=== PATIENT | male | born 1955 | race Caucasian/White ===

== ENCOUNTER → 2020-06-03 | Outpatient (CLI) | payer BC | END | disposition home or self-care (01) | LOC: RAH 13:57 | PROVIDERS: ATTEND Internal Medicine | DX: S82.452A Displaced comminuted fracture of shaft of left fibula, initial encounter for closed fracture (principal); M25.562 Pain in left knee; X58.XXXA Exposure to other specified factors, initial encounter; Y93.89 Activity, other specified; Y92.89 Other specified places as the place of occurrence of the external cause; Y99.8 Other external cause status | CPT/HCPCS: 73560 ==

== ENCOUNTER → 2020-11-11 | Outpatient (CLI) | payer BC | END | disposition home or self-care (01) | LOC: RAH 16:33 | PROVIDERS: ATTEND Internal Medicine | DX: R07.81 Pleurodynia (principal); W19.XXXA Unspecified fall, initial encounter; Y93.89 Activity, other specified; Y92.89 Other specified places as the place of occurrence of the external cause; Y99.8 Other external cause status | CPT/HCPCS: 71101 ==

== ENCOUNTER → 2021-12-26 | Outpatient (CLI) | payer BC | END | disposition home or self-care (01) | LOC: SHCH 13:27 | PROVIDERS: ATTEND Internal Medicine Cardiovascular Disease | DX: R55 Syncope and collapse (principal) | CPT/HCPCS: 93306 ==

== ENCOUNTER → 2023-07-06 | Outpatient (CLI) | payer BC | END | disposition home or self-care (01) | LOC: RAH 13:59 | PROVIDERS: ATTEND Internal Medicine | DX: S50.12XA Contusion of left forearm, initial encounter (principal); X58.XXXA Exposure to other specified factors, initial encounter; Y93.89 Activity, other specified; Y92.89 Other specified places as the place of occurrence of the external cause; Y99.8 Other external cause status | CPT/HCPCS: 73090 ==

== ENCOUNTER 2024-05-20 19:21 | Emergency (ER) | payer BC, MEDICARE ==
[~2024-05-20] VITALS: Ht 167.6 cm; Wt 65.8 kg
--- NOTE | 2024-05-20 20:08 | ERN ---
General Chief Complaint: Mechanical Fall Stated Complaint: MECHANICAL FALL Time Seen by MD: 19:25 Source: patient, family History of Present Illness Initial Comments 69-YEAR-OLD MALE WITH A HISTORY OF PARKINSON'S DISEASE COMING IN TO BE EVALUATED AFTER SHE HAD HE HAS A MECHANICAL FALL EARLIER TODAY. PER FAMILY MEMBERS PATIENT DOES HAVE A SHUFFLING GAIT WHICH CAUSES HIM FALL FREQUENTLY. DISLOCATION PATIENT WAS AT A [employer] WALKING OUT OF THE [employer] AND DUE TO THE SHAFT IN GAIT RIGHT FOOT CUP. ON THE CURB FELL DOWN HITTING HIMSELF IN THE RIGHT SHOULDER AND RIGHT HIP REGION. PATIENT STATES HE WAS ABLE TO MOVE HIS RIGHT SHOULDER MILD TENDERNESS NO DEFORMITY. HIS RIGHT HIP IS TENDER TO PALPATION HE WAS ABLE TO AMBULATE BUT HAS BEEN SOME DISCOMFORT. Allergies: Coded Allergies: No Known Allergies (Unverified Allergy, Unknown, 05/20/24) Past Medical History Past Medical History: Other Medical History Other: PARKINSONS Past Surgical History: None ROS Dictation CONSTITUTIONAL: NO CHILLS, NO FEVER, NO WEAKNESS, NO DIAPHORESIS, NO MALAISE. HEAD/FACE: NO SIGNS OF TRAUMA. EENT: NO EYE PAIN, NO BLURRED VISION, NO TEARING, NO DOUBLE VISION, NO EAR PAIN, NO EAR DISCHARGE, NO NOSE PAIN, NO NASAL CONGESTION, NO THROAT PAIN, NO THROAT SWELLING, NO MOUTH PAIN. RESPIRATORY: NO COUGH, NO ORTHOPNEA, NO SOB, NO STRIDOR, NO WHEEZING. CARDIOVASCULAR: NO CHEST PAIN, NO EDEMA, NO PALPITATIONS, NO SYNCOPE. GASTROINTESTINAL/ABDOMINAL: NO ABDOMINAL PAIN, NO CONSTIPATION, NO DIARRHEA, NO NAUSEA, NO VOMITING. GENITOURINARY: NO ABNORMAL DISCHARGE, NO DYSURIA, NO FREQUENT URINATION, NO HEMATURIA. NO COMPLAINTS OF PAIN IN THE GENITALS. MUSCULOSKELETAL: NO BACK PAIN, NO GOUT, JOINT PAIN, JOINT SWELLING, MUSCLE PAIN, NO MUSCLE STIFFNESS, NO NECK PAIN. INTEGUMENTARY: NO CHANGE IN COLOR, NO CHANGE IN HAIR/NAILS, NO DRYNESS, NO LESION, NO LUMPS, NO RASH. NEUROLOGICAL/PSYCH: NO ANXIETY, NOT DEPRESSED, NO EMOTIONAL PROBLEM, NO HEADACHE, NO NUMBNESS, NO PRE-EXISTING DEFICIT, NO HISTORY OF SEIZURES, NO TREMORS, NO WEAKNESS. HEMATOLOGIC/LYMPHATIC: NOT ANEMIC, NO HISTORY OF BLOOD CLOTS, NO APPARENT BLEEDING, NO BRUISING, GLANDS NOT SWOLLEN. ALL SYSTEMS NEGATIVE, EXCEPT NOTED. Physical Exam Physical Exam Dictation VITAL SIGNS: REVIEWED. GENERAL APPEARANCE: ALERT, ORIENTED X3, NO ACUTE DISTRESS, OBESE. HEAD AND FACE: NON-TRAUMATIC. EYES: PERRL, PINK CONJUNCTIVAS, EYELID NO TRAUMA, ANTERIOR CHAMBER CLEAR. EARS: PINNAS INTACT AND NO SIGNS OF TRAUMA OR ERYTHEMA. EAR CANALS CLEAR AND NO DISCHARGE. TMS NO ERYTHEMA. NOSE: NO DISCHARGE, NO BLEEDING. OROPHARYNX: MOUTH NORMAL, TEETH NO CARIES, TONGUE PINK. PHARYNX CLEAR, NO ERYTHEMA. TONSILS NO EXUDATES, NO ABSCESSES NOTED. MUCOUS MEMBRANE MOIST. NECK: SUPPLE, NON-TENDER, NO THYROMEGALY, NO MASSES, NO JVD, NO BRUITS. BREAST: DEFERRED. CHEST: NO TENDERNESS, NO CREPITUS, NO PARADOXICAL MOVEMENT, NO RETRACTIONS. LUNGS: CLEAR, WELL-VENTILATED, SYMMETRIC, NO RALES, NO WHEEZING, NO RHONCHI, NO STRIDOR, GOOD BREATH SOUNDS BILATERALLY. HEART: REGULAR RATE, REGULAR RHYTHM, NO MURMUR, NO GALLOPS. VASCULAR: NO PERIPHERAL EDEMA. ABDOMEN: SOFT, POSITIVE BOWEL SOUNDS, NONDISTENDED, NO GUARDING, NONTENDER, NO REBOUND, NO MASSES NO HEPATOMEGALY, NO SPLENOMEGALY, NO MCKEON'S SIGN, NO HERNIAS. RECTAL: DEFERRED. GENITAL: DEFERRED. NEUROLOGICAL: NORMAL SPEECH, GROSS MOTOR FUNCTION INTACT, GROSS SENSORY FUNCTION INTACT. MUSCULOSKELETAL: NECK NONTENDER, FULL RANGE OF MOTION, BACK NONTENDER, FULL RANGE OF MOTION. EXTREMITIES: NONTENDER, FULL RANGE OF MOTION. RIGHT SHOULDER TENDERNESS TO PALPATION, NO LIMITATION ABDUCTION AND ADDUCTION OF RIGHT SHOULDER, TENDERNESS TO PALPATION OF THE RIGHT HIP NO LIMITATION ON MOVEMENT. SKIN: COLOR PINK, DRY, NO TURGOR, NO RASH, NO LACERATIONS, NO ABRASIONS, NO CONTUSIONS. LYMPHATICS: DEFERRED. Results Laboratory and Microbiology Labs Reviewed?: Yes EKG/XRAY/US/CT/MRI X-RAY Comment [place] [id number] [id number] IMAGING REPORT Signed PATIENT: FELIPE SO MR#: [id number] : 1955 SEX: M AGE: 69 LOCATION: ED ORDER 40 STATUS: REG REPORT#: [id number] SERVICE 39 REASON: fall ORDERING PHYSICIAN: MICHELLE KNOWLES MD PROCEDURE: RIB RT W C - RIBS UNI RT W PA CHEST 3+ VWS RIBS UNI RT W PA CHEST 3+ VWS HISTORY: fall TECHNIQUE: RIBS UNI RT W PA CHEST 3+ VWS FINDINGS/IMPRESSION: No evidence of displaced rib fracture. Clinical correlation is recommended. No acute pulmonary consolidation pleural effusion. Cardiac silhouette is within normal limits. DICTATED BY: JAYA GARY MD DATE: 05/20/242044 ELECTRONICALLY SIGNED BY: JAYA GARY MD DATE: 05/20/242047 [place] [id number] IMAGING REPORT Signed PATIENT: FELIPE SO MR#: [id number] : 1955 SEX: M AGE: 69 LOCATION: EDH ORDER 40 STATUS: REG ER [facility] REPORT#: [id number] SERVICE 39 REASON: fall ORDERING PHYSICIAN: MICHELLE KNOWLES MD PROCEDURE: HIP U 2V R - HIP UNILAT 2-3VW RIGHT HIP UNILAT 2-3VW RIGHT INDICATION: fall TECHNIQUE: HIP UNILAT 2-3VW RIGHT. FINDINGS/IMPRESSION: No displaced fracture or dislocation is seen. Correlate clinically. There is no joint effusion or soft tissue swelling. No radiopaque foreign body is identified. DICTATED BY: JAYA GARY MD DATE: 05/20/242043 ELECTRONICALLY SIGNED BY: JAYA GARY MD DATE: 05/20/242046 [facility] MDM: DIFFERENTIAL DIAGNOSIS: FALL, TRIP, MECHANICAL FALL, HIP CONTUSION, SHOULDER STRAIN PATIENT IS A 69-YEAR-OLD MALE COMING IN TO BE EVALUATED AFTER HE HAD A FALL. PATIENT HAS A HISTORY OF PARKINSON'S AND HAS A SHUFFLING GAIT WHICH CAUSED HIM TO FALL. HE HAS HAD SEVERAL FALSE IN THE PAST SECONDARY TO PARKINSON'S. ON DISLOCATION X-RAYS OF THE HIP AND RIBS ARE NEGATIVE FOR ACUTE FINDINGS. PATIENT WILL BE DISCHARGED IN STABLE CONDITION WITH A DIAGNOSIS OF MECHANICAL FALL. ED Course Orders Procedure Category Date Status Time Ribs Uni Rt W Pa RAD 05/20/24 Resulted Chest 3+ Vws 19:40 Hip Unilat 2-3vw Right RAD 05/20/24 Resulted 19:40 Acetaminophen 500mg PHA 05/20/24 Complete Tab (Tylenol 500mg T 20:00 Ibuprofen 600 Mg PHA 05/20/24 Transmitted Tablet (Motrin) 21:00 Current Medications Medications (Trade) Dose Ordered Sig/Olivia Route PRN Reason Start Time Stop Time Status Last Admin Dose Admin Acetaminophen (TYLenol 500MG TAB) 500 mg ONCE ONCE PO 05/20/24 20:00 05/20/24 20:01 DC Vital Signs Date Time Temp Pulse Resp B/P (MAP) Pulse Ox O2 Delivery O2 Flow Rate FiO2 05/20/24 19:27 97.5 61 14 119/69 97 Room Air DX & DISP Disposition: Discharge Departure Impression: Primary Impression: Accident due to mechanical fall without injury Additional Impression: History of Parkinson's disease Condition: Stable Additional Instructions: FOLLOW-UP WITH PRIMARY CARE PROVIDER IN 1 TO 2 DAYS. TAKE MEDICATIONS DIRECTED HERE IN THE EMERGENCY ROOM. OKAY TO CONTINUE HOME MEDICATIONS UNLESS OTHERWISE DISCUSSED DURING YOUR VISIT IN THE EMERGENCY ROOM TODAY. RETURN TO YOUR NEAREST EMERGENCY ROOM IF SYMPTOMS WORSEN OR IF THERE IS NO IMPROVEMENT. CALL 911 IF YOU NEED IMMEDIATE ASSISTANCE. TAKE TYLENOL [id number] NEEDED AND IF NO CONTRAINDICATIONS ARE PRESENT. INCREASE ORAL HYDRATION. A WOUND CULTURE OR URINE CULTURE WAS ORDERED HERE IN THE EMERGENCY ROOM DEPARTMENT PLEASE FOLLOW-UP WITH PRIMARY CARE PROVIDER AND ADVISE THEM TO GET REPEAT PORTS FROM OUR FACILITY. IF YOU HAD ANY PRIYANK WRAP/SPLINTS THAT WERE APPLIED HERE, PL EASE DO NOT REMOVE THEM UNTIL YOU SEE YOUR PRIMARY CARE OR SPECIALTY. REFERRALS: Referrals: DENNISE ALVARADO MD (PCP) Time of Disposition: 20:57 MICHELLE KNOWLES MD May 20, 2024 20:07
--- NOTE | 2024-05-20 20:47 | HMCIMG ---
HIP UNILAT 2-3VW RIGHT INDICATION: fall TECHNIQUE: HIP UNILAT 2-3VW RIGHT. FINDINGS/IMPRESSION: No displaced fracture or dislocation is seen. Correlate clinically. There is no joint effusion or soft tissue swelling. No radiopaque foreign body is identified.
--- NOTE | 2024-05-20 20:48 | HMCIMG ---
RIBS UNI RT W PA CHEST 3+ VWS HISTORY: fall TECHNIQUE: RIBS UNI RT W PA CHEST 3+ VWS FINDINGS/IMPRESSION: No evidence of displaced rib fracture. Clinical correlation is recommended. No acute pulmonary consolidation pleural effusion. Cardiac silhouette is within normal limits.
[2024-05-20] MEDS: acetaMINOPHEN 500 MG TABLET PO ONE (20:52)
--- NOTE | 2024-05-20 20:53 | NUR ---
PT REFUSING TYLENOL/ STATES IT MAKES MIGRAINS WORSE
[2024-05-20] MEDS: ibuPROFEN 600 MG TABLET PO ONE (20:57)
[2024-05-20 21:08] VITALS: BP 117/65; PULSE 74; RESP 16; TEMP 98; O2SAT 98
== END 2024-05-20 21:10 | disposition home or self-care (01) ==
LOC: EDH 19:21
DX: M25.511 Pain in right shoulder (principal); M25.551 Pain in right hip; R00.2 Palpitations; G20.A1 Parkinson's disease without dyskinesia, without mention of fluctuations
CPT/HCPCS: 71101; 73502; 99283

== ENCOUNTER 2024-12-16 15:49 | Emergency (ER) | payer MEDICARE, BC ==
[~2024-12-16] VITALS: Ht 172.7 cm; Wt 67.1 kg
[2024-12-16 16:22] LABS: IMMATURE GRANULOCYTE ABSOLUTE 0.03 K/uL (0-1); NUCLEATED RED BLOOD CELLS 0.0 % (0.0-0.19); PLATELET COUNT (AUTO) 196 K/uL (130-400); RED BLOOD CELL COUNT(AUTO) 4.35 MIL/uL (4.50-6.20); RED CELL DISTRIBUTION WIDTH 12.6 % (11.0-15.5); WHITE BLOOD COUNT (AUTO) 6.5 K/uL (4.8-10.8)
[2024-12-16] MEDS: 0.9%NACL 1000ML 1,000 ML IV ONE (16:30)
--- NOTE | 2024-12-16 16:33 | NUR ---
PT REFUESED TYLONOL AFTER SCANNED ADVISED TYLONOL PROMOTES MIGRANE HEADACHES
[2024-12-16 16:38] LABS: CREATININE 1.5 mg/dL (0.5-1.3); GLOMERULAR FILTR. RATE CALC 49.0 mL/min (>90); GLUCOSE,RANDOM 71.0 mg/dL (70-105); SODIUM SERUM 141.0 mmol/L (136-145); UREA NITROGEN, BLOOD 24.0 mg/dL (7-18)
[2024-12-16 16:43] LABS: CREATINE KINASE, TOTAL 71.0 U/L (21-232)
--- NOTE | 2024-12-16 17:02 | HMCIMG ---
EXAM: CT Cervical Spine Without IV contrast. CLINICAL HISTORY: fall, trauma TECHNIQUE: Axial computed tomography images of the cervical spine without intravenous contrast. Sagittal and coronal reformatted images were generated. COMPARISON: None provided. FINDINGS: ALIGNMENT: Straightening of the cervical spine. No dislocation. DEGENERATIVE CHANGES: Mild to moderate degenerative changes which are more pronounced in the lower cervical spine. SOFT TISSUES: The prevertebral soft tissues are within normal limits. BONES: No fracture in the cervical spine. IMPRESSION: 1. No fracture or dislocation in the cervical spine. 2. Straightening of the cervical spine. This may be positional or may be due to paraspinal muscle spasm. 3. Mild to moderate degenerative changes which are more pronounced in the lower cervical spine. /[place]
--- NOTE | 2024-12-16 17:03 | HMCIMG ---
EXAM: CR Chest, 1 View. CLINICAL HISTORY: weakness COMPARISON: None provided. FINDINGS: LUNGS: The lungs show no infiltrate or other acute finding. PLEURAL SPACES: No pleural effusion or pneumothorax. MEDIASTINUM: Cardiac size and mediastinal contours within normal limits. BONES: No aggressive appearing osseous lesion seen. IMPRESSION: No acute cardiopulmonary pathology is evident. /[place]
--- NOTE | 2024-12-16 17:05 | HMCIMG ---
EXAM: CT Head Without IV contrast. CLINICAL HISTORY: fall, trauma TECHNIQUE: Axial computed tomography images of the head/brain without intravenous contrast. COMPARISON: None provided. FINDINGS: BRAIN: No evidence of acute hemorrhage. No mass lesion. No CT evidence for acute territorial infarct. No midline shift or extra-axial collections. VENTRICLES: No hydrocephalus. ORBITS: The orbits are unremarkable. SINUSES AND MASTOIDS: The paranasal sinuses and mastoid air cells are clear. BONES: No fracture. SOFT TISSUES: Unremarkable. IMPRESSION: No acute intracranial abnormality. /[place]
--- NOTE | 2024-12-16 17:56 | NUR ---
ORTHO VITALS AR FOLLOW SUPINE -HR 44 BP-171/79 SITTING -HR-50 BP-158/76 STANGING -HR-51 BP-156/80
--- NOTE | 2024-12-16 17:58 | NUR ---
C COLLAR REMOVED BY TRAFFIC ENGINEER
[2024-12-16 18:50] VITALS: BP 157/67; PULSE 52; RESP 16; TEMP 98.1; O2SAT 99
--- NOTE | 2024-12-16 19:03 | ERN ---
ED Note History of Present Illness Stated Complaint: FALL Chief Complaint: Mechanical Fall Time Seen by MD: 15:53 Time Seen by Midlevel: 15:53 Dictation: The patient is a 69-year-old male with a history of Parkinson's, dementia, migraine headaches who presents to the emergency department with complaints of a ground level fall onto today around 2:00 p.m.. Fall was witnessed by family members. Reports patient was trying to open the refrigerator with the door when he fell backwards hitting the back of his head. Family unable to determine if he lost any consciousness. They deny any nausea or vomiting, denies any use of blood thinners. Denies any recent illness. Denies any fevers, nausea vomiting or diarrhea. Patient reports he has occasional dizziness but denies any current dizziness. Per family patient has been having frequent falls over the last two years. Patient is following up with Cardiology for evaluation of propranolol use due to migraines. Patient denies any lower extremity pain, denies any hip pain, denies any abdominal pain or back pain. Reports neck pain Allergies: Coded Allergies: No Known Allergies (Unverified Allergy, Unknown, 05/20/24) Past Medical History Past Medical History: High Cholesterol, Hypotension, Migraines, Other Additional Past Medical Hx: PARKINSONS Surgical History: None Review of System Dictation Constitutional: Negative for fever,chills, and weight loss Eyes: Negative for injury, pain,redness, and discharge ENT: Negative for injury,pain or swelling positive for neck pain Cardiovascular: Negative for chest pain, palpitations, and edema Respiratory: Negative for shortness of breath, cough, and wheezing, Abdomen/GI: Negative for abdominal pain, nausea, vomiting, diarrhea, and constipation Back: Negative for injury and pain : Negative for injury, bleeding and discharge MS/Extremity: Negative for injury and deformity Skin: Negative for rash, and discoloration Neuro: Negative for weakness, numbness, tingling, and seizure positive for headaches Psych: Negative for suicide ideation, homicidal ideation, and hallucinations Initial Vital Sign VS Vital Signs Date Time Temp Pulse Resp B/P (MAP) Pulse Ox O2 Delivery O2 Flow Rate FiO2 12/16/24 15:53 97.9 50 18 100/66 96 Room Air 12/16/24 16:17 0 21 Physical Exam Dictation Vital Signs reviewed General Appearance: Alert, oriented x 1 (baseline), no acute distress, well developed, nourished. Head and Face: non-traumatic. Eyes: PERRL, pink conjunctivas, eyelid no trauma, anterior chamber with arcus senilis. Ears: Pinnas intact and no signs of trauma or erythema ear canals clear and no discharge TM no erythema Nose: No discharge, no bleeding. Oropharynx: Mouth normal, tongue pink. pharynx clear,no erythema, tonsils no exudates, no abscesses noted, mucous membrane moist Neck: Supple, non-tender, no thyromegaly, no masses, no JVD, no bruits Breast:Deferred Chest:No tenderness, no crepitus, no paradoxical movement, no retractions Lungs:Clear, well-ventilated, symmetric, no rales, no wheezing, no rhonchi, no stridor, good breath sounds bilaterally Heart: Regular rate, regular rhythm, no murmur, no gallops Vascular: no peripheral edema, Abdomen: Soft, positive bowel sounds, nondistended, no guarding, nontender, no rebound, no masses no hepatomegaly, no splenomegaly, no Sainz's sign, no hernias. Rectal: Deferred Genital: Deferred Neurological: Normal speech, motor function intact, sensory function intact , upper extremities equal in strength, extremities equal in strength, no facial droop Musculoskeletal: Neck nontender, full range of motion, back nontender, full range of motion, Extremities: nontender, full range of motion Skin: Color pink, dry, no turgor, no rash, no lacerations, no abrasions, no contusions. Lymphatic: Deferred Results (Laboratory/Radiology) Laboratory/Radiology Laboratory Tests Test 12/16/24 16:15 White Blood Count 6.5 K/uL (4.8-10.8) Red Blood Count 4.35 MIL/uL (4.50-6.20) L Hemoglobin 13.2 g/dL (14.0-18.0) L Hematocrit 38.6 % (42-54) L Mean Corpuscular Volume 88.7 fL (79-99) Mean Corpuscular Hemoglobin 30.3 pg (27.0-33.0) Mean Corpuscular Hemoglobin Concent 34.2 g/dL (32.0-36.0) Red Cell Distribution Width 12.6 % (11.0-15.5) Platelet Count 196 K/uL (130-400) Mean Platelet Volume 9.1 fL (7.5-10.5) Immature Granulocyte % (Auto) 0.5 % (0-1) Neutrophils (%) (Auto) 60.8 % (40.0-77.0) Lymphocytes (%) (Auto) 22.7 % (21.0-51.0) Monocytes (%) (Auto) 14.1 % (3.0-13.0) H Eosinophils (%) (Auto) 1.4 % (0.0-8.0) Basophils (%) (Auto) 0.5 % (0.0-5.0) Neutrophils # (Auto) 4.0 K/uL (1.8-7.7) Lymphocytes # (Auto) 1.5 K/uL (1.0-4.8) Monocytes # (Auto) 0.9 K/uL (0.1-1.0) Eosinophils # (Auto) 0.09 K/uL (0.00-0.70) Basophils # (Auto) 0.03 K/uL (0.00-0.20) Absolute Immature Granulocyte (auto 0.03 K/uL (0-1) Nucleated Red Blood Cells 0.0 % (0.0-0.19) Sodium Level 141 mmol/L (136-145) Potassium Level 3.3 mmol/L (3.5-5.1) L Chloride Level 103 mmol/L (101-111) Carbon Dioxide Level 33 mmol/L (21-32) H Blood Urea Nitrogen 24 mg/dL (7-18) H Creatinine 1.5 mg/dL (0.5-1.3) H Glomerular Filtration Rate Calc 49 mL/min (>90) Random Glucose 71 mg/dL (70-105) Total Calcium 8.5 mg/dL (8.5-10.1) Magnesium Level 2.50 mg/dL (1.80-2.40) H Total Creatine Kinase 71 U/L (21-232) Troponin I High Sensitivity 5 ng/L (4-75) REASON: fall, trauma ORDERING PHYSICIAN: MARRY CASTLE PROCEDURE: C SPIN WO - CT CERVICAL SPINE W/O CONTRAST EXAM: CT Cervical Spine Without IV contrast. CLINICAL HISTORY: fall, trauma TECHNIQUE: Axial computed tomography images of the cervical spine without intravenous contrast. Sagittal and coronal reformatted images were generated. COMPARISON: None provided. FINDINGS: ALIGNMENT: Straightening of the cervical spine. No dislocation. DEGENERATIVE CHANGES: Mild to moderate degenerative changes which are more pronounced in the lower cervical spine. SOFT TISSUES: The prevertebral soft tissues are within normal limits. BONES: No fracture in the cervical spine. IMPRESSION: 1. No fracture or dislocation in the cervical spine. 2. Straightening of the cervical spine. This may be positional or may be due to paraspinal muscle spasm. 3. Mild to moderate degenerative changes which are more pronounced in the lower cervical spine. /[place] REASON: fall, trauma ORDERING PHYSICIAN: MARRY CASTLE PROCEDURE: HEAD WO - CT HEAD/BRAIN W/O CONTRAST EXAM: CT Head Without IV contrast. CLINICAL HISTORY: fall, trauma TECHNIQUE: Axial computed tomography images of the head/brain without intravenous contrast. COMPARISON: None provided. FINDINGS: BRAIN: No evidence of acute hemorrhage. No mass lesion. No CT evidence for acute territorial infarct. No midline shift or extra-axial collections. VENTRICLES: No hydrocephalus. ORBITS: The orbits are unremarkable. SINUSES AND MASTOIDS: The paranasal sinuses and mastoid air cells are clear. BONES: No fracture. SOFT TISSUES: Unremarkable. IMPRESSION: No acute intracranial abnormality. /[place] REASON: weakness ORDERING PHYSICIAN: MARRY CASTLE PROCEDURE: CXR1VW - CHEST 1VW EXAM: CR Chest, 1 View. CLINICAL HISTORY: weakness COMPARISON: None provided. FINDINGS: LUNGS: The lungs show no infiltrate or other acute finding. PLEURAL SPACES: No pleural effusion or pneumothorax. MEDIASTINUM: Cardiac size and mediastinal contours within normal limits. BONES: No aggressive appearing osseous lesion seen. IMPRESSION: No acute cardiopulmonary pathology is evident. /[place] Labs Reviewed?: Yes EKG: (+) rhythm (Sinus bradycardia) EKG Comment: Date:12/16/2024 Time:1622 Ventricular rate:47 DE interval:201 QRS duration:110 QT/QTc:489/432 EKG interpretation: Sinus bradycardia Reviewed by ED Attending NO STEMI ED Course ED Course Orders Procedure Category Date Status Time Cbc With Differential LAB 12/16/24 Complete 16:08 Chest 1vw RAD 12/16/24 Resulted 16:08 12 Lead Ekg Tracing- EKG 12/16/24 Logged Technical 16:08 0.9%Nacl 1000ml (Ns PHA 12/16/24 In Process 1000ml) 16:30 Magnesium LAB 12/16/24 Complete 16:08 Creatine Kinase, Total LAB 12/16/24 Complete 16:08 Troponin I High LAB 12/16/24 Complete Sensitivity 16:08 Basic Metabolic Panel LAB 12/16/24 Complete 16:08 Acetaminophen 325 Tab PHA 12/16/24 Complete (Tylenol 325mg Tab 16:30 Ct Head/Brain W/O CT 12/16/24 Resulted Contrast 16:08 Ct Cervical Spine W/O CT 12/16/24 Resulted Contrast 16:08 Orthostatic Vital CPOE 12/16/24 Transmitted Signs 16:08 Current Medications Medications (Trade) Dose Ordered Sig/Olivia Route PRN Reason Start Time Stop Time Status Last Admin Dose Admin Acetaminophen (TYLenol 325MG TAB) 650 mg ONCE ONCE PO 12/16/24 16:30 12/16/24 16:31 DC 12/16/24 16:31 Sodium Chloride 1,000 ml @ 125 mls/hr ONCE ONCE IV 12/16/24 16:30 12/17/24 00:29 12/16/24 16:30 Vital Signs Date Time Temp Pulse Resp B/P (MAP) Pulse Ox O2 Delivery O2 Flow Rate FiO2 12/16/24 16:17 98.1 48 16 116/63 99 Room Air* 0 21 12/16/24 15:53 97.9 50 18 100/66 96 Room Air Medical Decision Making MDM The patient is a 69-year-old male with a history of Parkinson's, dementia, migraine headaches who presents to the emergency department with complaints of a ground level fall onto today around 2:00 p.m.. Fall was witnessed by family members. Reports patient was trying to open the refrigerator with the door when he fell backwards hitting the back of his head. Family unable to determine if he lost any consciousness. They deny any nausea or vomiting, denies any use of blood thinners. Denies any recent illness. Denies any fevers, nausea vomiting or diarrhea. Patient reports he has occasional dizziness but denies any current dizziness. Per family patient has been having frequent falls over the last two years. Patient is following up with Cardiology for evaluation of propranolol use due to migraines. Patient denies any lower extremity pain, denies any hip pain, denies any abdominal pain or back pain. Reports neck pain CBC showed no leukocytosis, mild normocytic anemia, chemistry showed mild hypokalemia, creatinine of 1.5. Unknown patient's baseline with the patient deep IV fluids in ER. Negative troponin. CT head showed no acute intracranial abnormality. Chest x-ray showed no acute pulmonary pathology C-spine showed no fractures or dislocations mild to moderate degenerative changes. Patient's orthostatics were stable. I discussed the possibility of admission with the patient's family at this time family would like to be discharged so they can follow up with PCP as outpatient. Risks and benefits discussed with the patient and patient's family. Patient was able to ambulate with some assistance. Patient's vital signs remained stable during ER stay. No signs of arrhythmias. No acute events. Patient's family reports they will follow up on Wednesday with PCP and they will follow up with Cardiology. Patient's family agreed to return if anything worsens. Differential diagnosis: Orthostatic hypotension, dehydration, ACS, bradycardia Need for hospitalization: Patient does not meet criteria for hospitalization. There are no social concerns with this patient. DX & DISP Disposition: Discharge Departure Impression: Primary Impression: Ground-level fall Additional Impressions: Head contusion, Neck sprain, Mild dehydration Condition: Stable Additional Instructions: Your labs showed mild dehydration you received IV fluids in the ER. Your CT scans were unremarkable. Please follow up with your PCP in 1-2 days. 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 FOLLOW-UP WITH PRIMARY CARE PROVIDER IN 1 TO 2 DAYS. TAKE MEDICATIONS DIRECTED HERE IN THE EMERGENCY ROOM. OKAY TO CONTINUE HOME MEDICATIONS UNLESS OTHERWISE DISCUSSED DURING YOUR VISIT IN THE EMERGENCY ROOM TODAY. RETURN TO YOUR NEAREST EMERGENCY ROOM IF SYMPTOMS WORSEN OR IF THERE IS NO IMPROVEMENT. CALL 911 IF YOU NEED IMMEDIATE ASSISTANCE. TAKE TYLENOL [id number] NEEDED AND IF NO CONTRAINDICATIONS ARE PRESENT. INCREASE ORAL HYDRATION. A WOUND CULTURE OR URINE CULTURE WAS ORDERED HERE IN THE EMERGENCY ROOM DEPARTMENT PLEASE FOLLOW-UP WITH PRIMARY CARE PROVIDER AND ADVISE THEM TO GET REPEAT PORTS FROM OUR FACILITY. IF YOU HAD ANY PRIYANK WRAP/SPLINTS THAT WERE APPLIED HERE, PLEASE DO NOT REMOVE THEM UNTIL YOU SEE YOUR PRIMARY CARE OR SPECIALTY. Referrals: DENNISE ALVARADO MD (PCP) Time of Disposition: 19:02 I have reviewed the case, and I agree with, Diagnosis and Plan MARRY CASTLE [facility] Dec 16, 2024 19:03
--- NOTE | 2024-12-17 10:04 | EKG ---
[facility] Test Date: 2024-12-16 Test Time: 16:22:26 Pat Name: FELIPE SO Department: EDH Room: Gender: M Sliver Cutter: [facility] : 1955 Requested By: MARRY CASTLE Order Number: [id number] Reading MD: Richard Alexander Measurements Intervals [place] Rate: 47 P: 48 [place]: 201 QRS: -15 QRSD: 110 T: 61 QT: 489 QTc: 432 Interpretive Statements Sinus bradycardia small Q-waves in one and aVL of questionable significance RSR prime in V1 V2 No previous ECG available for comparison Electronically Signed On 12-17-2024 11:38:27 CDT by Richard Alexander Please click the below link to view image of tracing.
== END 2024-12-16 19:22 | disposition home or self-care (01) ==
LOC: EDH 15:49
DX: S13.9XXA Sprain of joints and ligaments of unspecified parts of neck, initial encounter (principal); S00.93XA Contusion of unspecified part of head, initial encounter; E78.00 Pure hypercholesterolemia, unspecified; E86.0 Dehydration; G20.A1 Parkinson's disease without dyskinesia, without mention of fluctuations; M47.812 Spondylosis without myelopathy or radiculopathy, cervical region; W18.39XA Other fall on same level, initial encounter; Y93.89 Activity, other specified; Y92.89 Other specified places as the place of occurrence of the external cause; Y99.8 Other external cause status
CPT/HCPCS: 99285; 70450; 96360; 96361; 71045; 82550; 83735; 84484; 80048; 85025; 36415; 72125; 93005; J7030